=== PATIENT | female | born 1985 | race African-American/Black ===

== ENCOUNTER 2018-04-07 20:43 | Emergency (ER) | payer OTHER ==
[~2018-04-07] VITALS: Ht 177.8 cm; Wt 95.3 kg
--- NOTE | ~2018-04-07 | EKG ---
[place] [address] [facility] [place] [address] ELECTROCARDIOGRAM REPORT Name: ELISEO CALIX [facility] [id number] Admission: 04/07/18 Attend Phys: Discharge: 04/07/18 Date of : 81 Report #: [id number] THIS REPORT FOR: //name// [facility] ED Test Date: 2018-04-07 Test Time: 20:56:51 Pat Name: ELISEO CALIX Department: Room: Gender: F Tie Loader: : 1985 Requested By: Brennan Ratliff Order Number: [id number] MD: Ian De Souza Measurements Intervals [place] Rate: 77 P: 28 [place]: 188 QRS: 28 QRSD: 96 T: 41 QT: 382 QTc: 433 Interpretive Statements Sinus rhythm Low voltage, extremity leads ST elev, probable normal early repol pattern No previous ECG available for comparison Electronically Signed On 04-08-2018 7:45:50 CDT by Ian De Souza [email or web address] <ELECTRONICALLY SIGNED> By: Ian De Souza MD, [facility] 04/08/18 0745 2056 55 Ian De Souza MD, FACC /EPI
[~2018-04-07 20:43] MED LIST: APAP500 PO; DERMOPLAST SPRA56 ML; IBUPROFEN 800800 M1 PO; PRENATAL PO; TUCKS MEDICATE1 EAC1; TYLENOL W/CODEI1 TA2 PO; ZOFRAN ODT4 MG PO
[2018-04-07] MEDS ORDERED: BROMOCRIPTINE2.5 M1 PO (20:56)
[2018-04-07 21:23] LABS: HEMOGLOBIN 11.9 gm/dL (12.0-15.0); MCH 29.1 pg (26.0-34.0); MCV 85.8 fL (80.0-100.0); RBC 4.08 mil/uL (4.20-5.00); RDW 13.5 % (10.5-14.5); WBC 9.9 thou/uL (4.0-11.0)
[2018-04-07 21:27] LABS: ANION GAP 8 mmol/L (7-16); BUN 16 mg/dL (7-18); CHLORIDE 102 mmol/L (98-107); CO2 28 mmol/L (21-32); CREATININE 0.8 mg/dL (0.6-1.0); GLUCOSE 84 mg/dL (74-106); POTASSIUM 3.9 mmol/L (3.5-5.1); SODIUM 138 mmol/L (136-145)
[2018-04-07 21:36] LABS: ALBUMIN 3.5 g/dL (3.4-5.0); SGOT 16 U/L (15-37); SGPT 23 U/L (30-65); TOTAL BILIRUBIN 0.1 mg/dL (<0.1-1.0); TROPONIN-I <0.06 ng/mL (<0.06)
[2018-04-07 22:43] VITALS: BP 97/59
== END 2018-04-07 22:44 | disposition home or self-care (01) ==
LOC: ER 20:43
PROVIDERS: Physician Assistant
DX: R07.89 Other chest pain (principal)